=== PATIENT | female | born 1960 | race Caucasian/White ===

== ENCOUNTER → 2021-09-17 16:00 | Outpatient (BNVA) | payer BC, SELFPAY | PROVIDERS: Family Provider Family Medicine; Visit Provider Nurse Practitioner Family | DX: R39.9 Unspecified symptoms and signs involving the genitourinary system (principal) | CPT/HCPCS: 74018; 80053; 81000; 85025 ==

== ENCOUNTER 2021-09-18 18:02 | Emergency (ER) | payer BC, SELFPAY ==
[2021-09-18 18:38] VITALS: BP 143/86; PULSE 118; RESP 16; TEMP 36.7; O2SAT 98; BMI 30.7
[2021-09-18 20:42] LABS: Basophils % 0.3 %; Eosinophils # 0.1 10^3/uL (0.0-0.8); Eosinophils % 0.5 %; Hematocrit 42.5 % (37.0-47.0); Lymphocytes # 1.4 10^3/uL (0.8-4.8); Lymphocytes % 11.4 %; Mean Corpuscular HGB Conc 32.9 g/dL (30.0-36.0); Mean Corpuscular Hemoglobin 30.2 pg (28.0-34.0); Mean Corpuscular Volume 91.6 fl (81-99); Mean Platelet Volume 8.7 fL (7.4-10.4); Neutrophils % 79.4 %; Nucleated Red Blood Cells % 0 %; Platelet Count 255 10^3/cmm (130-400); Red Blood Count 4.64 10^6/uL (4.1-5.3); Red Cell Distribution Width 12.1 % (12.1-15.1); White Blood Count 12.6 10^3/uL (4.0-10.0)
[2021-09-18 21:06] LABS: Alanine Aminotransferase 25 U/L (0-33); Albumin Level 4.9 g/dL (3.5-5.2); Alkaline Phosphatase 138 IU/L (35-105); Blood Urea Nitrogen 10 mg/dL (8-23); Calcium 9.5 mg/dL (8.5-10.5); Carbon Dioxide 26 mmol/L (22-29); Chloride 98 mmol/L (98-107); Creatinine Clr Calc Pharmacy 107.5122; Globulin 3.4 g/dL (1.3-4.6); Glomerular Filtration Rate 101.3 mL/min (90-130); Glucose 107 mg/dL (65-115); Lipase 42 U/L (13-60); Osmolality Calculated 286 mOsm/kg (285-295); Sodium 138 mmol/L (136-145); Total Bilirubin 0.7 mg/dL (0.15-1.2); Total Protein 8.3 g/dL (6.6-8.7)
[2021-09-18 21:07] LABS: Anion Gap 18.4 (5-19); Aspartate Amino Transferase 25 U/L (0-32); Potassium 4.4 mmol/L (3.5-5.1)
--- NOTE | 2021-09-18 22:07 | CTR_ITS ---
PROCEDURE INFORMATION: Exam: CT Abdomen And Pelvis With Contrast Exam date and time: 09/18/2021 10:07 PM Age: 61 years old Clinical indication: Abdominal pain; Localized; Right; Prior surgery; Surgery type: Csection x 2; Patient HX: RT sided abd pain with nausea. TECHNIQUE: Imaging protocol: Computed tomography of the abdomen and pelvis with contrast. Radiation optimization: All CT scans at this facility use at least one of these dose optimization techniques: automated exposure control; mA and/or kV adjustment per patient size (includes targeted exams where dose is matched to clinical indication); or iterative reconstruction. Contrast material: OMNI 300; Contrast volume: 95 ml; Contrast route: INTRAVENOUS (IV); COMPARISON: CR XR abdomen 1V* [id number] 09/17/2021 3:59 PM RADIATION DOSE METRICS: Total DLP (mGy-cm): 1572.68 FINDINGS: Lungs: Right lower lobe atelectasis. Liver: Hepatic steatosis. Gallbladder and bile ducts: Gallbladder is somewhat distended, ultrasound could further evaluate this as clinically indicated. Pancreas: Normal. No ductal dilation. Spleen: Normal. No splenomegaly. Adrenal glands: Normal. No mass. Kidneys and ureters: Normal. No hydronephrosis. Stomach and bowel: Prominent fluid throughout the small bowel with mucosal enhancement suggestive of an enteritis. Diverticulosis without diverticulitis. Small superiorly directed outpouching containing air with perhaps some surrounding edema arising from the proximal transverse duodenum, may reflect a diverticulum , however, and ulcer is also a consideration, consider further evaluation with endoscopy as clinically indicated, finding is best seen on series 602, image 34. Appendix: No evidence of appendicitis. Intraperitoneal space: Unremarkable. No free air. No significant fluid collection. Vasculature: Unremarkable. No abdominal aortic aneurysm. Lymph nodes: Unremarkable. No enlarged lymph nodes. Urinary bladder: Unremarkable as visualized. Reproductive: Unremarkable as visualized. Bones/joints: Unremarkable. No acute fracture. Soft tissues: Unremarkable. CT/CT abdomen pelvis w con* [id number] IMPRESSION: 1. Prominent fluid throughout the small bowel with mucosal enhancement suggestive of an enteritis. 2. Diverticulosis without diverticulitis. 3. Right lower lobe atelectasis. 4. Hepatic steatosis. 5. Gallbladder is somewhat distended, ultrasound could further evaluate this as clinically indicated. 6. Small superiorly directed outpouching containing air with perhaps some surrounding edema arising from the proximal transverse duodenum, may reflect a diverticulum , however, and ulcer is also a consideration, consider further evaluation with endoscopy as clinically indicated, finding is best seen on series 602, image 34.
--- NOTE | 2021-09-18 22:08 | W.ED.ABDPA2 ---
HPI - Abdominal Pain General: Chief Complaint: Abdominal Pain Stated Complaint: LOWER RIGHT ABD PAIN Time Seen by Provider: 09/18/21 21:43 Source: patient Mode of arrival: ambulatory Limitations: no limitations History of Present Illness: 61-year-old female states been having right lower quadrant abdominal pain over the last 2 days states been sharp in nature rates it roughly 5-6 out of 10. States seems to be worse with movement improved with rest she is had no vomiting or diarrhea states she has had some nausea denies any fevers. She denies any radiation of her pain. Denies any dysuria. Associated Symptoms: Reports nausea; Denies chills, dysuria and fever(s) Review of Systems Const: Denies: fever(s), chills, body aches or change in appetite Eyes: Denies: blurry vision or eye discomfort ENMT: Denies: throat pain or dental pain Card: Denies: chest pain Resp: Denies: dyspnea GI: Reports: abdominal pain and nausea : Denies: dysuria Musc: Denies: neck pain or back pain Skin/Breast: Denies: rash Neuro: Denies: headache(s) Psych: Denies: depression Ronald/Lymph: Denies: easy bruising All/Imm: Denies: urticaria PFSH ED PFSH: Surgical History Hx of section 2 Hx of eye surgery left eye Family History Father Hypertension Social History Smoking and tobacco status: never smoked Second hand smoke exposure: No Smoking risk assessment/counseling performed?: No Alcohol intake: never Desire information about alcohol rehabilitation?: No Counseling given: No Desire information about substance/drug rehabilitation?: No Counseling given: No Adopted: No Caregiver/support person: No Lives independently: Yes Household members: spouse Housing: House Marital status: Number of children: 2 Highest education level completed: Some College, No Degree service: No History of recent travel: No Physical Exam Const: COMMON NORMALS: patient oriented x3 and healthy appearing HENMT: COMMON NORMALS: normocephalic and atraumatic HEAD & SCALP: normocephalic and atraumatic Eye: COMMON NORMALS: Equal, round and reactive pupils present and EOMs intact bilaterally PUPIL: Yes Equal, round and reactive pupils present Neck/C-Spine: COMMON NORMALS: full ROM and supple Chest: COMMONS NORMALS: normal inspection of the chest and normal palpation of entire chest wall Resp: COMMON NORMALS: normal respiratory effort, No retractions, No use of accessory muscles and clear to auscultation bilaterally AUSCULTATION: clear to auscultation bilaterally Cardio: COMMON NORMALS: regular rate, regular rhythm and No murmurs present (Cardio) RATE: regular rate RHYTHM: regular rhythm GI: COMMON NORMALS: Normal to inspection, nondistended, normoactive bowel sounds present, Soft to palpation and no masses PALPATION: Yes Soft to palpation and Yes Tenderness to palpation present (GI) Details: RLQ Extremity: COMMON NORMALS: normal to inspection and full ROM Neuro: COMMON NORMALS: patient oriented x3, moves all extremities and no focal motor deficits Psych: COMMON NORMALS: mental status grossly normal, Normal thought process present and cooperative THOUGHT PROCESS: Normal thought process present Skin: COMMON NORMALS: no rashes or lesions noted and no wounds GENERAL SKIN EXAM: no rashes or lesions noted Course Vital Signs: Vital signs: Vital Signs Temperature 98.0 F 09/18/21 18:38 Pulse Rate 83 09/18/21 22:24 Respiratory Rate 16 09/18/21 22:45 Blood Pressure 138/74 09/18/21 22:24 Pulse Oximetry 96 09/18/21 22:24 MDM - Abdominal Pain Medical Decision Making Patient presents here with abdominal pain CT and lab work here all normal with no acute findings her pain has improved here did inform her she likely needs an EGD in the future she is return if she has worsening pain she is follow-up with PCP in 2 to 4 days. Lab Data : 09/18/21 20:32 09/18/21 20:32 Labs/Radiology: Radiology Impressions Abdomen/Pelvis CT 09/18/21 22:07 IMPRESSION: 1. Prominent fluid throughout the small bowel with mucosal enhancement suggestive of an enteritis. 2. Diverticulosis without diverticulitis. 3. Right lower lobe atelectasis. 4. Hepatic steatosis. 5. Gallbladder is somewhat distended, ultrasound could further evaluate this as clinically indicated. 6. Small superiorly directed outpouching containing air with perhaps some surrounding edema arising from the proximal transverse duodenum, may reflect a diverticulum , however, and ulcer is also a consideration, consider further evaluation with endoscopy as clinically indicated, finding is best seen on series 602, image 34. Laboratory Results WBC 12.6 10^3/uL (4.0-10.0) H 09/18/21: RBC 4.64 10^6/uL (4.1-5.3) 09/18/21: Hgb 14.0 g/dL (11.5-15.3) 09/18/21: Hct 42.5 % (37.0-47.0) 09/18/21: MCV 91.6 fl (81-99) 09/18/21: MCH 30.2 pg (28.0-34.0) 09/18/21: MCHC 32.9 g/dL (30.0-36.0) 09/18/21: RDW 12.1 % (12.1-15.1) 09/18/21: Plt Count 255 10^3/cmm (130-400) 09/18/21: MPV 8.7 fL (7.4-10.4) 09/18/21: Neut % (Auto) 79.4 % 09/18/21: Lymph % (Auto) 11.4 % 09/18/21: [place] % (Auto) 8.0 % 09/18/21: Eos % (Auto) 0.5 % 09/18/21: Baso % (Auto) 0.3 % 09/18/21: Neut # (Auto) 10.00 10^3/uL (1.8-7.7) H 09/18/21: Lymph # (Auto) 1.4 10^3/uL (0.8-4.8) 09/18/21: [place] # (Auto) 1.0 10^3/uL (0.2-0.9) H 09/18/21: Eos # (Auto) 0.1 10^3/uL (0.0-0.8) 09/18/21: Baso # (Auto) 0.0 10^3/uL (0.0-0.1) 09/18/21: Nucleated RBC % (auto) 0 % 09/18/21: Nucleated RBCs # 0.0 /100WBC 09/18/21 20: Sodium 138 mmol/L (136-145) 09/18/21: Potassium 4.4 mmol/L (3.5-5.1) 09/18/21: Chloride 98 mmol/L (98-107) 09/18/21: Carbon Dioxide 26 mmol/L (22-29) 09/18/21: Anion Gap 18.4 (5-19) 09/18/21: BUN 10 mg/dL (8-23) 09/18/21: Creatinine 0.6 mg/dL (0.5-0.9) 09/18/21: GFR Calculation 101.3 mL/min (90-130) 09/18/21: Glucose 107 mg/dL (65-115) 09/18/21: Calculated Osmolality 286 mOsm/kg (285-295) 09/18/21: Calcium 9.5 mg/dL (8.5-10.5) 09/18/21: Total Bilirubin 0.7 mg/dL (0.15-1.2) 09/18/21: AST 25 U/L (0-32) 09/18/21: ALT 25 U/L (0-33) 09/18/21: Alkaline Phosphatase 138 IU/L (35-105) H 09/18/21: Total Protein 8.3 g/dL (6.6-8.7) 09/18/21: Albumin 4.9 g/dL (3.5-5.2) 09/18/21: Globulin 3.4 g/dL (1.3-4.6) 09/18/21: Lipase 42 U/L (13-60) 09/18/21 20: Urine Color Yellow (Yellow) 09/18/21 22: Urine Appearance Clear (CLEAR) 09/18/21 22: Urine pH 5 (5-7) 09/18/21 22: Ur Specific [place] 1.015 (1.005-1.030) 09/18/21: Urine Protein Neg (Negative) 09/18/21: Urine Glucose (UA) Norm (Normal) 09/18/21: Urine Ketones 1+ (Negative) H 09/18/21: Urine Blood Neg (Negative) 09/18/21: Urine Nitrate Negative (Negative) 09/18/21: Urine Bilirubin Neg (Negative) 09/18/21: Urine Urobilinogen Norm mg/dL (Negative) 09/18/21: Ur Leukocyte Esterase 1+ (Negative) H 09/18/21: Urine RBC 0-4 /hpf (0-2) H 09/18/21: Urine WBC 5-10 /hpf (0-5) H 09/18/21: Ur Squamous Epith Cells 5-10 /hpf (0-5) H 09/18/21: Amorphous Sediment Not Reportable 09/18/21: Urine Bacteria Trace /hpf (NONE) 09/18/21: Discharge Plan Discharge Patient Disposition: Home Clinical Impression: Abdominal pain Condition: Stable Prescriptions: New hydrocodone-acetaminophen 5-325 mg tablet 1 tab PO Q6H PRN (Reason: pain) Qty: 14 0RF ondansetron 4 mg tablet,disintegrating 4 mg PO Q6H PRN (Reason: nausea and vomiting) Qty: 14 0RF No Action omega-3 fatty acids [Fish Oil Concentrate] 1,000 mg capsule 1,000 mg PO DAILY 0RF Discharge Orders: Discharge ED (Routine); Ordered 09/18/21 Ordered By: Dell Miner Discharge Diet: Advance as tolerated Discharge Activity: Resume usual activity Patient Instructions: Abdominal Pain (ED), Opioid Safety Coding Level of Care Code ED Baseball Hand Sewer for Chg Fwd Exam Comprehensive
[2021-09-18 22:24] VITALS: BP 138/74; PULSE 83; RESP 16; O2SAT 96
[2021-09-18] MEDS: iohexol 300 mg/mL 100 mL Btl IV (22:35)
[2021-09-18 22:45] VITALS: RESP 16
[2021-09-18] MEDS: morphine 4 mg/mL SDV 1 mL IVP (22:45)
[2021-09-18] MEDS: ondansetron 2 mg/ML SDV 2 mL 4 MG IVP (22:45)
[2021-09-18] MEDS: sodium chloride 0.9% 1,000 ML 999 ML IV (22:46)
[2021-09-18 23:13] LABS: Add Urine Culture? No; Add Urine Microscopic? YES; Bacteria Urine TRACE /hpf; Bilirubin Urine Neg (Negative); Blood Urine Neg (Negative); Glucose Urine UA Norm (Normal); Ketones Urine 1+ (Negative); Leukocyte Esterase Urine 1+ (Negative); Nitrate Urine Negative (Negative); Protein Urine Neg (Negative); RBC Urine 0-4 /hpf (0-2); Specific Gravity, Urine 1.015 (1.005-1.030); Urine Appearance Clear (CLEAR); Urine Color Yellow (Yellow); Urobilinogen Urine Norm (Negative); pH Urine 5 (5-7)
[2021-09-18 23:43] VITALS: BP 123/77
== END 2021-09-18 23:44 | disposition home or self-care (01) ==
PROVIDERS: Emergency Provider Emergency Medicine
DX: R10.9 Unspecified abdominal pain (principal)
CPT/HCPCS: 74177; 80053; 81001; 83690; 85025; 96361; 96374; 96375; 99284; J2270; J2405; J7030; Q9967

== ENCOUNTER 2022-04-11 06:00 | Outpatient (RCR) | payer BC, SELFPAY | END 2022-05-03 23:59 | disposition home or self-care (01) | LOC: TPT 06:00 | PROVIDERS: Visit Provider Family Medicine | DX: M25.562 Pain in left knee (principal); G89.29 Other chronic pain | CPT/HCPCS: 97032; 97110; 97162 ==

== ENCOUNTER 2022-05-04 21:40 | Outpatient (RCR) | payer BC, SELFPAY | END 2022-06-03 23:59 | disposition home or self-care (01) | LOC: TPT 21:40 | PROVIDERS: Visit Provider Family Medicine | DX: M25.562 Pain in left knee (principal); G89.29 Other chronic pain | CPT/HCPCS: 97110; 97164 ==

== ENCOUNTER 2022-09-20 06:00 | Outpatient (RCR) | payer BC, SELFPAY | END 2022-10-01 23:59 | disposition home or self-care (01) | LOC: TPT 06:00 | PROVIDERS: Visit Provider Student in an Organized Health Care Education/Training Program | DX: Z47.1 Aftercare following joint replacement surgery (principal); Z96.652 Presence of left artificial knee joint | CPT/HCPCS: 97110; 97162 ==

== ENCOUNTER 2022-10-02 06:00 | Outpatient (RCR) | payer BC, SELFPAY | END 2022-11-01 23:59 | disposition home or self-care (01) | LOC: TPT 06:00 | PROVIDERS: Visit Provider Student in an Organized Health Care Education/Training Program | DX: Z47.1 Aftercare following joint replacement surgery (principal); Z96.652 Presence of left artificial knee joint | CPT/HCPCS: 97110; 97140 ==

== ENCOUNTER 2022-11-02 06:00 | Outpatient (RCR) | payer BC, SELFPAY | END 2022-11-20 23:59 | disposition home or self-care (01) | LOC: TPT 06:00 | PROVIDERS: Visit Provider Student in an Organized Health Care Education/Training Program | DX: Z47.89 Encounter for other orthopedic aftercare (principal) | CPT/HCPCS: 97110; 97140 ==